=== PATIENT | male | born 1995 | race Native Hawaiian/Other Pacific Islander ===

== ENCOUNTER 2021-03-12 14:06 | Outpatient (CLI) | payer BC, OTHER | END 2021-03-12 19:13 | disposition home or self-care (01) | LOC: LAB 14:06 | PROVIDERS: ATTEND Internal Medicine | DX: R05 Cough (principal); R09.81 Nasal congestion; Z20.822 Contact with and (suspected) exposure to COVID-19 | CPT/HCPCS: 87635; G2023; U0003 ==

== ENCOUNTER 2022-10-20 11:29 | Outpatient (CLI) | payer BC | END 2022-10-20 19:32 | disposition home or self-care (01) | LOC: RAD 11:29 | PROVIDERS: ATTEND Internal Medicine | DX: R09.1 Pleurisy (principal) ==